=== PATIENT | male | born 1975 | race Caucasian/White ===

== ENCOUNTER 2017-01-23 15:53 | Emergency (ER) | payer BC, OTHER ==
[2017-01-23 16:11] VITALS: BP 140/97
--- NOTE | 2017-01-23 16:22 | EDM.PDOC ---
ED HPI GENERAL MEDICAL PROBLEM - General Chief Complaint: Lower Extremity Injury/Pain Stated Complaint: L FOOT PAIN Time Seen by Provider: 01/23/17 16:10 Source of Information: Reports: Patient History Limitations: Reports: No Limitations - History of Present Illness INITIAL COMMENTS - FREE TEXT/NARRATIVE: Patient is a 41-year-old male who presents ED complaining of left foot pain. Patient states last night noticed some increasing pain to the sole of his foot worsened with palpation and ambulation. No known precipitating factors. No similar pains in the past. Does wear slip on boots and shoes untied shoes no regular basis. Notes increasing pain upon awaking this morning in comparison today. Patient hasn't taken any medications for the discomfort. Has no pertinent past medical history and denies any current medications. Denies any additional complaints. 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) (none stated) Left Feet Pain Score (Numeric/FACES): 3 - Related Data Allergies Allergy/AdvReac Type Severity Reaction Status Date / Time No Known Allergies Allergy Verified 01/01/14 09:11 CDT Home Meds: Home Meds Lisinopril/Hydrochlorothiazide [Lisinopril-Hctz 20-25 mg Tab] 1 tab PO DAILY 06/01 [History] Social & Family History - Tobacco Use Years of Tobacco use: 4 Used Tobacco, but Quit: Yes Month Tobacco Last Used: december 2013 Second Hand Smoke Exposure: No - Alcohol Use Days Per Week of Alcohol Use: 1 Number of Drinks Per Day: 0 Total Drinks Per Week: 0 - Recreational Drug Use Recreational Drug Use: No Review of Systems - Review of Systems Review Of Systems: ROS reveals no pertinent complaints other than HPI. ED EXAM, GENERAL - Physical Exam Exam: See Below Exam Limited By: No Limitations General Appearance: Alert, WD/WN, No Apparent Distress Ears: Hearing Grossly Normal Nose: Normal Inspection Throat/Mouth: Normal Voice, No Airway Compromise Neck: Normal Inspection, Supple Respiratory/Chest: No Respiratory Distress, No Accessory Muscle Use Cardiovascular: Normal Peripheral Pulses, Regular Rate, Rhythm Extremities: Normal Inspection, Normal Range of Motion, No Pedal Edema, Normal Capillary Refill, Other (left foot: Patient is pinpoint tenderness proximal to the calcaneus on the sole of his foot. No bruising, swelling, redness, or bony antibodies are identified. Minimal pain with flexion and extension as well as external rotation and internal rotation of the foot. pain is mild with palpation. No sensorimotor deficits noted.) Neurological: Alert, Oriented, CN II-XII Intact, Normal Cognition, No Motor/ Sensory Deficits Psychiatric: Normal Affect, Normal Mood Skin Exam: Warm, Dry, Intact, Normal Color, No Rash Course - Vital Signs Last Recorded V/S: Last Vital Signs Temp 98.5 F 01/23/17 16:10 Pulse 87 01/23/17 16:10 Resp 20 01/23/17 16:10 BP 140/97 H 01/23/17 16:10 Pulse Ox 97 01/23/17 16:10 - Orders/Labs/Meds Orders: Active Orders 24 hr Category Date Time Status Foot Comp Min 3V Lt [CR] Stat Exams 01/23/17 16:15 Taken - Re-Assessments/Exams Free Text/Narrative Re-Assessment/Exam: Findings are consistent with plantar fasciitis. Will obtain an x-ray per request of the patient to evaluate for any bony abnormalities. 01/23/17 17:00 X-ray revealed small bone spurs to calcaneous. NO acute abnormalities noted. Final interpretation pending. Dr. Lozada reviewed films as well. Will discharge patient home with nell wrap and instructions as documented. Departure - Departure Time of Disposition: 17:01 Disposition: Home, Self-Care 01 Condition: good Clinical Impression: Plantar fasciitis of left foot - Discharge Information Forms: ED Department Discharge Additional Instructions: As discussed examination findings consistent for plantar fasciitis. Treatment is symptomatic care only including ice, ibuprofen and Tylenol in alternating fashion, refrain from activities that cause worsening pain. Make an appointment to see a tooling engineer in the next one to 2 weeks for reevaluation and treatment. Return to ED for any new or worsening symptoms. - My Orders Last 24 Hours: My Active Orders 01/23/17 16:15 Foot Comp Min 3V Lt [CR] Stat - Assessment/Plan Last 24 Hours: My Active Orders 01/23/17 16:15 Foot Comp Min 3V Lt [CR] Stat
--- NOTE | 2017-01-25 15:46 | CR ---
Left foot: Three views of the left foot were obtained. Comparison: No previous study. Small plantar spur is seen. Small spur noted at the attachment of the Achilles tendon to the calcaneus. No acute fracture, dislocation or other bony abnormality is seen. Impression: 1. Calcaneal spurs. 2. No additional abnormality is identified on the left foot exam. Diagnostic code #2
== END 2017-01-23 17:10 | disposition home or self-care (01) ==
LOC: JD.ED 15:53
DX: M72.2 Plantar fascial fibromatosis (principal); Z79.899 Other long term (current) drug therapy
CPT/HCPCS: 73630-26-LT; 73630-LT; 99282; 99283